=== PATIENT | female | born 1970 | race Caucasian/White ===

== ENCOUNTER 2023-11-24 09:33 | Emergency (ER) | payer OTHER, SELFPAY ==
--- NOTE | 2023-11-24 09:36 | XR_ITS ---
FINAL REPORT CLINICAL HISTORY: PAIN IN GREAT TOE FINDINGS: LEFT FOOT Three views demonstrate a comminuted fracture of the first distal phalanx with a fracture line extending to the interphalangeal joint. No acute soft tissue abnormality is seen. IMPRESSION: Acute fracture of the first distal phalanx as above. Reviewed, Interpreted and Dictated by Pasquale Myers III, MD Transcribed by Jenifer Márquez Authenticated and . [facility]
[2023-11-24 10:25] VITALS: BP 141/86; PULSE 76; RESP 19; TEMP 36.8; O2SAT 98; BMI 34.4
--- NOTE | 2023-11-24 10:49 | EXP.UTC ---
Discharge Plan Disposition Patient Disposition: Home, Self-Care Condition: Good Prescriptions Prescriptions: New cephalexin 500 mg capsule 500 mg PO TID 7 Days Qty: 21 0RF No Action tolterodine 2 mg capsule,extended release 24hr 2 mg PO DAILY buspirone 5 mg Tablet 5 mg PO BIDP PRN (Reason: Panic Attack(S)) naproxen 500 mg Tablet 500 mg PO BID PRN (Reason: GOLFER'S ELBOW) escitalopram oxalate 20 mg Tablet 20 mg PO DAILY Referrals Follow up/Referrals: Nidia Fulton APRN [Nurse Practitioner] - 12/01/23 8:30 am (arrive 30 minutes early for xray ) Dominick Reaves II, MD [Primary Care Provider] - See instructions Laxmi Caro DPM [Staff Physician] - See instructions (Call office for appointment) Activity Restrictions/Add. Instructions Additional Instructions/Restrictions: *weight bearing as tolerated Use crutches and stay off foot as much as possible *RICE, Rest the extremity, Ice 15-20 minutes 3-4 times daily, Compress- wear the aaron wrap as discussed as much as possible to help reduce swelling and pain, Elevate the extremity when at rest *Walking boot is for support and help control swelling, use it except in the shower. Be sure that is not to tight but not to loose either *Elevate when resting? *Ibuprofen 600-800mg every 6-8 hours as needed for pain an inflammation. If need something more can take Tylenol in between doses of Ibuprofen to help Immediately follow up with your family doctor for new or worsening of symptoms, or no noticeable improvement over the next 3-5 days Follow up with Podiatry as scheduled Clinical Impressions Clinical Impression: Fracture of toe Qualifiers: Encounter type: initial encounter Toe: great toe Fracture type: closed Phalanx: distal Fracture alignment: nondisplaced Laterality: left Qualified Code(s): S92.425A - Nondisplaced fracture of distal phalanx of left great toe, initial encounter for closed fracture Instructions Patient Instructions: How to Use Crutches, How To Perform RICE (Rest, Ice, Compress, Elevate), How to Use a Walking Boot Discharge ED Provider: Melissa Hooker [facility] General Stated complaint: AO pain in L Big toe Mode of Arrival: Ambulatory Source of Information: Patient Limitations: No Limitations Time Seen by Provider: 11/24/23 10:49 Description of Symptoms (Recalled from Triage Doc. by RN): PATIENT C/O INJURY TO LEFT GREAT TOE AFTER FALLING WHILE STEPPING UP ON PORCH LAST NIGHT HEENT Symptoms (Recalled from RN notes): No Resp Symptoms (Recalled from RN notes): No Skin Symptoms (Recalled from RN notes): No MS Symptoms (Recalled from RN notes): Yes Functional Status (Recalled from RN notes): WNL History of Present Illness Provider Complaint: Patient states that she was walking up steps last night and her ankle give way and she thinks she jammed her left great toe against the concrete States since then she has been having pain and swelling in her left great toe and has a blood blister on her toe that she is concerned with so today when she was still having pain and swelling she came in Related Data Home Medications Medication Instructions Recorded Confirmed buspirone 5 mg tablet 5 mg PO BIDP PRN Panic Attack(S) 11/24/23 11/24/23 escitalopram oxalate 20 mg tablet 20 mg PO DAILY 11/24/23 11/24/23 naproxen 500 mg tablet 500 mg PO BID PRN GOLFER'S ELBOW 11/24/23 11/24/23 tolterodine 2 mg capsule,extended 2 mg PO DAILY 11/24/23 11/24/23 release 24 hr Previous Rx's Medication Instructions Recorded cephalexin 500 mg capsule 500 mg PO TID 7 days #21 caps 11/24/23 Allergies Allergy/AdvReac Type Severity Reaction Status Date / Time No Known Allergies Allergy Verified 11/24/23 10:36 Worker's Comp Is this a Worker's Comp case?: No [facility] Disclaimer: The information contained in this section may have been updated after the patient was seen, as this information can be updated by other users. Medical History (Updated 11/24/23 @ 11:25 by Melissa Hooker APRN) Anxiety Surgical History (Updated 11/24/23 @ 10:37 by Carol Mina RN) History of eye surgery History of tubal ligation History of hysterectomy History of cholecystectomy Social History Smoking Status: Unknown if ever smoked alcohol intake: never current occupational status: employed Travel in the last 8 weeks: None ROS Obtained: Yes All systems reviewed & no additional complaints except as documented and Yes Systems reviewed as appropriate & no additional complaints except as documented Constitutional Constitutional: Reports system reviewed and no additional complaints, except as documented and Reports as per HPI ENT Ears, Nose, Mouth, and Throat: Reports system reviewed and no additional complaints, except as documented and Reports as per HPI Cardiovascular Cardiovascular: Reports system reviewed and no additional complaints, except as documented and Reports as per HPI Respiratory Respiratory: Reports system reviewed and no additional complaints, except as documented and Reports as per HPI Gastrointestinal Gastrointestingal: Reports system reviewed and no additional complaints, except as documented and as per HPI Musculoskeletal Musculoskeletal: Reports system reviewed and no additional complaints, except as documented, Reports as per HPI and Reports other Comments: pain and swelling in left great toe since jamming it on concrete steps last night Physical Exam General General appearance: alert and in no apparent distress ENT ENT exam: Present mucous membranes moist Respiratory Respiratory exam: Present normal lung sounds bilaterally; Absent respiratory distress or wheezes Cardiovascular Cardiovascular exam: Present regular rate, normal rhythm and normal heart sounds Expanded Lower Extremity Exam Left: Top foot image: 1. swelling and bruising noted with small blood blister noted at base of nail Neurological Exam Neurological exam: Present alert, oriented X3 and normal gait Medical Decision Making Go Inquiry Pt receiving controlled substance: No Go was queried for this patient: No Vital Signs: 11/24/23 10:25 Temperature 98.3 F Temperature Source Oral Pulse Rate [Left Brachial] 76 Respiratory Rate 19 Blood Pressure [Left Arm] 141/86 H Blood Pressure Mean [Left Arm] 104 Blood Pressure Source [Left Arm] Automatic Cuff Blood Pressure Position [Left Arm] Sitting 02 Sat by Pulse Oximetry 98 Oxygen Delivery Method Room Air Orders (Tests/Meds): ORDERS Category Date Time Status XR foot LT min 3V Stat Exams 11/24/23 09:36 Taken Radiology Data #1: Image(s): Foot/Toes Image Reviewed: Yes I have reviewed radiologist's interpretation comminuted fracture of the first distal phalanx with a fracture line extending to the interphalangeal joint Procedures Orthopedic Splinting/Casting Injury #1: Side: left Lower Extremity Injury Location: toe Lower Extremity Immobilizer: boot orthosis Additional Comments: Patient states has cane at home refused crutches Post Cast/Splinting Neuro Status: intact and no change Post Cast/Splinting Vasc Status: intact and no change
[2023-11-24 11:03] VITALS: BP 141/86; PULSE 76; RESP 19; TEMP 36.8; O2SAT 98
== END 2023-11-24 11:44 | disposition home or self-care (01) ==
PROVIDERS: Emergency Provider Nurse Practitioner; PCP Pediatrics
DX: S92.425A Nondisplaced fracture of distal phalanx of left great toe, initial encounter for closed fracture (principal); W10.9XXA Fall (on) (from) unspecified stairs and steps, initial encounter; F41.9 Anxiety disorder, unspecified
CPT/HCPCS: 73630; 99204; 99212; G0463

== ENCOUNTER 2023-12-01 08:14 | Outpatient (CLI) | payer OTHER, SELFPAY ==
--- NOTE | 2023-12-01 08:18 | XR_ITS ---
FINAL REPORT CLINICAL HISTORY: left great toe injury COMPARISON: 11/24/2023 FINDINGS: LEFT FOOT: Three views of the left foot were obtained. Again noted is a comminuted nondisplaced fracture of the first distal phalanx. Bony alignment is stable. There is no significant callus formation. No new abnormality identified. The joint spaces are intact. There is no soft tissue abnormality. IMPRESSION: Stable first distal phalanx fracture as above. No new abnormality. Reviewed, Interpreted and Dictated by Pasquale Myers III, MD Transcribed by Edwige Euceda Authenticated and [facility]
== END 2023-12-01 23:59 ==
LOC: RAD 08:15
PROVIDERS: Visit Provider Nurse Practitioner
DX: M79.672 Pain in left foot (principal)
CPT/HCPCS: 73630

== ENCOUNTER 2023-12-22 08:00 | Outpatient (CLI) | payer OTHER, SELFPAY ==
--- NOTE | 2023-12-22 08:03 | XR_ITS ---
FINAL REPORT CLINICAL HISTORY: First distal phalanx fracture, follow-up COMPARISON: 12/01/2023 FINDINGS: LEFT FOOT Three views of the left foot again demonstrates a comminuted fracture of the distal phalanx of the great toe. Alignment is stable. There is no significant callus formation. Mild degenerative changes are seen in the great toe. IMPRESSION: Comminuted fracture of the distal phalanx of the great toe without significant callus formation. Reviewed, Interpreted and Dictated by Pasquale Myers III, MD Transcribed by Jenifer Márquez Authenticated and [facility]
== END 2023-12-22 23:59 ==
LOC: RAD 08:01
PROVIDERS: PCP Pediatrics; Visit Provider Nurse Practitioner
DX: M79.675 Pain in left toe(s) (principal); S92.425A Nondisplaced fracture of distal phalanx of left great toe, initial encounter for closed fracture
CPT/HCPCS: 73630

== ENCOUNTER 2024-03-24 13:54 | Outpatient (CLI) | payer OTHER, SELFPAY ==
--- NOTE | 2024-03-24 14:01 | XR_ITS ---
FINAL REPORT CLINICAL HISTORY: LEFT HIP PAIN COMPARISON: None FINDINGS: LEFT HIP: Two views of the left hip with an AP view of the pelvis demonstrate no acute fracture or dislocation. There are minimal degenerative changes. The visualized bony structures are well aligned. No soft tissue abnormality is seen. IMPRESSION: Minimal degenerative changes without acute bony abnormality. Reviewed, Interpreted and Dictated by Pasquale Myers III, MD Transcribed by Edwige Euceda Authenticated and [facility]
== END 2024-03-24 23:59 | disposition home or self-care (01) ==
LOC: RAD 13:56
PROVIDERS: PCP Pediatrics; Visit Provider Pediatrics
DX: M25.552 Pain in left hip (principal)
CPT/HCPCS: 73502

== ENCOUNTER 2024-07-20 15:43 | Emergency (ER) | payer OTHER, SELFPAY ==
[2024-07-20 16:00] VITALS: BP 132/84; PULSE 73; RESP 18; TEMP 36.6; O2SAT 98; BMI 37.5
--- NOTE | 2024-07-20 16:13 | ED_ITS ---
Discharge Plan Disposition Patient Disposition: Home, Self-Care Condition: Good Prescriptions Prescriptions: New tizanidine 4 mg capsule 4 mg PO TID PRN (Reason: muscle spasticity) Qty: 14 0RF lidocaine 4 % adhesive patch,medicated 1 patch topical DAILY PRN (Reason: pain) Qty: 10 0RF Rx Instructions: apply patch for 12 hours then remove for 12 hours methylprednisolone [Medrol (Evaristo)] 4 mg tablets,dose pack See Rx Instructions .Route .COMPLEX 6 Days Qty: 21 0RF Rx Instructions: taper pack; No Action triamcinolone acetonide [Kenalog] 40 mg/mL suspension 20 mg IJ ONCE Qty: 0.5 0RF lidocaine HCl 20 mg/mL (2 %) solution 20 mg IJ ONCE Qty: 1 0RF dexamethasone sodium phosphate 4 mg/mL solution 2 mg IJ ONCE Qty: 0.5 0RF bupivacaine (PF) [Marcaine (PF)] 0.5 % (5 mg/mL) solution 5 mg IJ ONCE Qty: 1 0RF escitalopram oxalate 10 mg tablet 10 mg PO DAILY solifenacin 5 mg tablet PO gabapentin 300 mg capsule PO Patient Comments: TAKE 1 CAPSULE BY MOUTH THREE TIMES A DAY methocarbamol 750 mg tablet PO Patient Comments: TAKE 1 TABLET BY MOUTH FOUR TIMES A DAY diclofenac sodium 3 % gel topical Patient Comments: APPLY 4 GRAM AREA UP TO 4 TIMES DAILY rosuvastatin 10 mg tablet 10 mg PO DAILY buspirone 5 mg Tablet 5 mg PO BIDP PRN (Reason: Panic Attack(S)) escitalopram oxalate 20 mg Tablet 20 mg PO DAILY Referrals Follow up/Referrals: Dominick Reaves II, MD [Primary Care Provider] - See instructions Activity Restrictions/Add. Instructions Additional Instructions/Restrictions: Stop the Methocarbamol and start the Tizanidine Use lidocaine patch as instructed Take oral steriods Follow up with your Family Doctor if no improvement or any worsening of symptoms Warm compresses to area may help Clinical Impressions Clinical Impression: Muscle spasm Instructions Patient Instructions: DI for Muscle Spasm, Tizanidine, Lidocaine Transdermal Patch Print Language Print Language: Kazakh Discharge ED Provider: Melissa Hooker [facility] [place] HPI General Stated complaint: LT shoulder pain Mode of Arrival: Ambulatory Source of Information: Patient Limitations: No Limitations Time Seen by Provider: 07/20/24 16:13 Description of Symptoms (Recalled from Triage Doc. by RN): PATIENT C/O MUSCLE SPASM TO LEFT SHOULDER X 11 DAYS HEENT Symptoms (Recalled from RN notes): No Resp Symptoms (Recalled from RN notes): No Skin Symptoms (Recalled from RN notes): No MS Symptoms (Recalled from RN notes): Yes Functional Status (Recalled from RN notes): WNL History of Present Illness Provider Complaint: Patient states that she has chronic muscle spasms in her left shoulder blade area and she is prescribed methocarbamol States that she will get it worked out then it will spasm back up on her States that she has tried massage and that didnt help either States that today it wasnt any better so she came in to see if there was anything else that would help Related Data Home Medications ?Medication ?Instructions ?Recorded ?Confirmed buspirone 5 mg tablet 5 mg PO BIDP PRN Panic Attack(S) 11/24/23 07/20/24 escitalopram oxalate 20 mg tablet 20 mg PO DAILY 11/24/23 07/20/24 diclofenac sodium 3 % topical gel topical 07/20/24 07/20/24 escitalopram oxalate 10 mg tablet 10 mg PO DAILY 07/20/24 07/20/24 gabapentin 300 mg capsule mg PO 07/20/24 07/20/24 methocarbamol 750 mg tablet mg PO 07/20/24 07/20/24 rosuvastatin 10 mg tablet 10 mg PO DAILY 07/20/24 07/20/24 solifenacin 5 mg tablet mg PO 07/20/24 07/20/24 Previous Rx's ?Medication ?Instructions ?Recorded lidocaine 4 % topical patch 1 patch topical DAILY PRN pain #10 07/20/24 ea methylprednisolone 4 mg tablets in See Rx Instructions .Route 07/20/24 a dose pack (Medrol (Evaristo)) .COMPLEX 6 days #21 tabs tizanidine 4 mg capsule 4 mg PO TID PRN muscle spasticity 07/20/24 #14 caps Allergies Allergy/AdvReac Type Severity Reaction Status Date / Time amoxicillin Allergy Unknown Verified 07/20/24 16:15 allergy reaction Worker's Comp Is this a Worker's Comp case?: No [facility] Disclaimer: The information contained in this section may have been updated after the patient was seen, as this information can be updated by other users. Medical History Anxiety Surgical History History of eye surgery History of tubal ligation History of hysterectomy History of cholecystectomy Social History Smoking Status: Unknown if ever smoked alcohol intake: never current occupational status: employed Travel in the last 8 weeks: None ROS Obtained: Yes All systems reviewed & no additional complaints except as documented and Yes Systems reviewed as appropriate & no additional complaints except as documented Constitutional Constitutional: Reports system reviewed and no additional complaints, except as documented and Reports as per HPI ENT Ears, Nose, Mouth, and Throat: Reports system reviewed and no additional complaints, except as documented and Reports as per HPI Cardiovascular Cardiovascular: Reports system reviewed and no additional complaints, except as documented, Reports as per HPI, Denies chest pain, Denies dyspnea and Denies edema Respiratory Respiratory: Reports system reviewed and no additional complaints, except as documented, Reports as per HPI and Denies dyspnea Gastrointestinal Gastrointestingal: Reports system reviewed and no additional complaints, except as documented and as per HPI Musculoskeletal Musculoskeletal: Reports system reviewed and no additional complaints, except as documented, Reports as per HPI and Reports other (muscle spams in left shoulder blade area that goes away and comes back) Integumentary/Breasts Skin/Breast: Reports system reviewed and no additional complaints, except as documented and Reports as per HPI Physical Exam General General appearance: alert and in no apparent distress ENT ENT exam: Present mucous membranes moist Respiratory Respiratory exam: Present normal lung sounds bilaterally; Absent respiratory distress or wheezes Cardiovascular Cardiovascular exam: Present regular rate, normal rhythm and normal heart sounds Abdominal Exam Abdominal exam: Present soft and normal bowel sounds; Absent distention or tenderness Back Exam Back exam: Present muscle spasm Back 1 view image: 2 1. muscle tightness noted, reports spasm tightness like pain Neurological Exam Neurological exam: Present alert, oriented X3 and normal gait Medical Decision Making Medical Records Screening: Per USPSTF and CDC recommendations, given the prevalence of disease in our region, it is our hospital?s policy to screen for HIV and viral Hepatitis for all patients aged 18 and over and those with ongoing risk factors. Go Inquiry Pt receiving controlled substance: No Go was queried for this patient: No Vital Signs: 07/20/24 16:00 Temperature 97.8 F Temperature Source Oral Pulse Rate [Right Brachial] 73 Respiratory Rate 18 Blood Pressure [Right Arm] 132/84 Blood Pressure Mean [Right Arm] 100 Blood Pressure Source [Right Arm] Automatic Cuff Blood Pressure Position [Right Arm] Sitting 02 Sat by Pulse Oximetry 98 Oxygen Delivery Method Room Air
[2024-07-20 16:32] VITALS: BP 132/84; PULSE 73; RESP 18; TEMP 36.6; O2SAT 98
== END 2024-07-20 16:34 | disposition home or self-care (01) ==
PROVIDERS: Emergency Provider Nurse Practitioner; PCP Pediatrics
DX: M62.838 Other muscle spasm (principal); M25.512 Pain in left shoulder
CPT/HCPCS: 99212; G0381